=== PATIENT | female | born 1980 | race Caucasian/White ===

== ENCOUNTER 2017-05-29 07:33 | Inpatient (IN) | payer OTHER ==
[~2017-05-29] VITALS: Ht 160 cm; Wt 84.4 kg
[2017-05-29 07:54] VITALS: BP 117/65
[2017-05-29] MEDS ORDERED: PREN1TAB80 PO (07:56)
[2017-05-29] MEDS ORDERED: OXYTOCIN 30 UNITS/LACT RINGERS 500 ML IV ONE (08:26)
[2017-05-29] MEDS ORDERED: RINGERS SOLUTION,LACTATED 1,000 ML IV PRN (08:26)
[2017-05-29] MEDS ORDERED: CITRIC ACID/SODIUM CITRATE 30 ML SOLUTION UDCUP PO PRN (08:30)
[2017-05-29] MEDS ORDERED: METOCLOPRAMIDE HCL 5 MG/ML 2 ML VIAL IVP PRN (08:30)
[2017-05-29] MEDS ORDERED: LIDOCAINE HCL/PF 1% 30 ML VIAL INJ PRN (08:30)
[2017-05-29] MEDS ORDERED: AMPICILLIN SODIUM 2 GM/NS 100 ML IV ONE (08:30)
[2017-05-29] MEDS ORDERED: METHYLERGONOVINE MALEATE 0.2 MG/ML VIAL IM PRN (08:30)
[2017-05-29 08:57] LABS: BASOPHILS # (AUTO) 0.02 K/uL (0.00-0.20); BASOPHILS % (AUTO) 0.2 % (0.0-2.0); EOSINOPHILS % (AUTO) 1.01 % (1.0-6.0); HEMATOCRIT 37.1 % (36-46); HEMOGLOBIN 12.6 g/dL (12.0-16.0); LYMPHOCYTES % (AUTO) 19.8 % (22.0-44.0); MEAN CORPUSCULAR HEMOGLOBIN 32.2 pg (26.0-34.0); MEAN CORPUSCULAR VOLUME 95 fL (80-100); MONOCYTES # (AUTO) 0.6 K/uL (0.1-1.0); MONOCYTES % (AUTO) 6.1 % (2.0-9.0); NEUTROPHILS # (AUTO) 7.3 K/uL (1.8-7.7); NEUTROPHILS % (AUTO) 72.9 % (40.0-70.0); RED BLOOD CELL COUNT(AUTO) 3.92 MIL/uL (4.00-5.20); RED CELL DISTRIBUTION WIDTH 13.8 % (11.5-14.5)
[2017-05-29] MEDS: RINGERS SOLUTION,LACTATED 1,000 ML IV SCH ×3 (09:25→20:06)
[2017-05-29] MEDS: MISOPROSTOL 25 MCG TABLET VG SCH ×2 (09:38→12:30)
[2017-05-29] MEDS: AMPICILLIN SODIUM 1 GM/NS 50 ML IV SCH ×2 (13:42→17:52)
[2017-05-29] MEDS ORDERED: OXYTOCIN 30 UNITS/LACT RINGERS 500 ML IV PRN (13:51)
[2017-05-29] MEDS ORDERED: BUPIVACAINE HCL/PF 0.25% 10 ML VIAL ONE (15:46)
[2017-05-29] MEDS ORDERED: LIDOCAINE HCL/PF 2% 5 ML VIAL ONE (15:46)
[2017-05-29] MEDS ORDERED: FentaNYL/BUPIV 0.125%/NS/PF 200 ML ED ONE (15:46)
[2017-05-29] MEDS ORDERED: FentaNYL CITRATE-PF 100 MCG/2 ML VIAL IVP PRN (16:00)
[2017-05-29] MEDS ORDERED: FentaNYL/BUPIV 0.125%/NS/PF 200 ML ED PRN (16:29)
[2017-05-29] MEDS ORDERED: NALBUPHINE HCL 10 MG/ML VIAL IVP PRN ×2 (16:30)
[2017-05-29] MEDS ORDERED: PROMETHAZINE HCL 12.5 MG in SODIUM CHLORIDE 0.9% 50 ML IV PRN (16:30)
[2017-05-29] MEDS ORDERED: ONDANSETRON HCL 4 MG/2 ML VIAL IVP PRN (16:30)
[2017-05-29] MEDS ORDERED: DiphenhydrAMINE HCL 50 MG/ML VIAL IVP PRN (16:30)
[2017-05-29] MEDS ORDERED: OXYGEN THERAPY IH SCH (20:00)
[2017-05-29] MEDS ORDERED: RINGERS SOLUTION,LACTATED 1,000 ML IV ONE (23:48)
[2017-05-30] MEDS ORDERED: MEASLES/MUMPS/RUBELLA VACCINE, LIVE 0.5 ML/VIAL SQ ONE
[2017-05-30] MEDS ORDERED: OxyCODONE HCL/ACETAMINOPHEN 5-325 MG TABLET PO PRN ×2
[2017-05-30] MEDS ORDERED: GLYCERIN/WITCH HAZEL LEAF 40 PADS JAR TP PRN
[2017-05-30] MEDS ORDERED: BENZOCAINE 20%/MENTHOL 56 GM SPRAY CANISTER TP PRN
[2017-05-30] MEDS ORDERED: LANOLIN 7 GM OINTMENT TP PRN
[2017-05-30] MEDS: IBUPROFEN 600 MG TABLET PO PRN (20:22)
[2017-05-30] MEDS: MAGNESIUM HYDROXIDE SUSPENSION 30 ML UDCUP PO SCH (20:22)
[2017-05-31] MEDS: IBUPROFEN 600 MG TABLET PO PRN (05:12)
[2017-05-31] MEDS: MAGNESIUM HYDROXIDE SUSPENSION 30 ML UDCUP PO SCH (08:18)
[2017-05-31] MEDS ORDERED: IBUP-2070 PO (08:35)
[2017-05-31] MEDS ORDERED: DSS100 PO (08:37)
== END 2017-05-31 10:00 | disposition home or self-care (01) | DRG 775 ==
LOC: OBSVTOIN 07:33 → 4S 07:33
PROVIDERS: ADMIT Obstetrics & Gynecology; ATTEND Obstetrics & Gynecology
PROC: 10E0XZZ Delivery of Products of Conception, External Approach (ICD-10-PCS; principal; 2017-05-29)
PROC: 0UQMXZZ Repair Vulva, External Approach (ICD-10-PCS; 2017-05-29)
PROC: 0HQ9XZZ Repair Perineum Skin, External Approach (ICD-10-PCS; 2017-05-29)
PROC: 00HU33Z Insertion of Infusion Device into Spinal Canal, Percutaneous Approach (ICD-10-PCS; 2017-05-29)
DX: O42.92 Full-term premature rupture of membranes, unspecified as to length of time between rupture and onset of labor (principal); O63.9 Long labor, unspecified; O99.824 Streptococcus B carrier state complicating childbirth; O70.0 First degree perineal laceration during delivery; O71.82 Other specified trauma to perineum and vulva; O77.0 Labor and delivery complicated by meconium in amniotic fluid; Z37.0 Single live birth; Z3A.39 39 weeks gestation of pregnancy
CPT/HCPCS: 86850; 86900; 86901; J0290; J2590; J3010; J3490; J7120

== ENCOUNTER 2019-12-21 22:35 | Inpatient (IN) | payer OTHER ==
[~2019-12-21] VITALS: Ht 157.5 cm; Wt 85.7 kg
[~2019-12-21 22:35] MED LIST: DSS100 PO; IBUP-2070 PO; PREN1TAB80 PO
[2019-12-21] MEDS ORDERED: OXYTOCIN 30 UNITS/LACT RINGERS 500 ML IV PRN (23:22)
[2019-12-21] MEDS ORDERED: OXYTOCIN 30 UNITS/LACT RINGERS 500 ML IV ONE (23:22)
[2019-12-21] MEDS ORDERED: RINGERS SOLUTION,LACTATED 1,000 ML IV PRN (23:22)
[2019-12-21] MEDS ORDERED: FentaNYL CITRATE-PF 100 MCG/2 ML VIAL IVP PRN (23:30)
[2019-12-21] MEDS ORDERED: CITRIC ACID/SODIUM CITRATE 30 ML SOLUTION UDCUP PO PRN (23:30)
[2019-12-21] MEDS ORDERED: METOCLOPRAMIDE HCL 5 MG/ML 2 ML VIAL IVP PRN (23:30)
[2019-12-21] MEDS ORDERED: AMPICILLIN SODIUM 2 GM/NS 100 ML IV ONE (23:30)
[2019-12-21] MEDS: RINGERS SOLUTION,LACTATED 1,000 ML IV SCH (23:45)
[2019-12-22 00:12] LABS: HEMOGLOBIN 12.2 g/dL (12.0-16.0); RED BLOOD CELL COUNT(AUTO) 3.84 MIL/uL (4.00-5.20)
[2019-12-22 00:13] LABS: BASOPHILS % (AUTO) 0.3 % (0.0-2.0); EOSINOPHILS % (AUTO) 1.4 % (1.0-6.0); HEMATOCRIT 36.3 % (36-46); LYMPHOCYTES % (AUTO) 18.9 % (22.0-44.0); MEAN CORPUSCULAR HEMOGLOBIN 31.6 pg (26.0-34.0); MEAN CORPUSCULAR HGB CONC 33.5 G/dL (31.0-37.0); MEAN CORPUSCULAR VOLUME 95 fL (80-100); MONOCYTES # (AUTO) 0.8 K/uL (0.1-1.0); MONOCYTES % (AUTO) 7.8 % (2.0-9.0); NEUTROPHILS # (AUTO) 7.7 K/uL (1.8-7.7); NEUTROPHILS % (AUTO) 71.6 % (40.0-70.0); PLATELET COUNT (AUTO)-OB 197 K/uL (150-450); RED CELL DISTRIBUTION WIDTH 13.3 % (11.5-14.5)
[2019-12-22 00:39] VITALS: BP 114/69
[2019-12-22] MEDS: AMPICILLIN SODIUM 1 GM/NS 50 ML IV SCH ×3 (04:10→11:58)
[2019-12-22] MEDS ORDERED: ROPIVACAINE HCL/PF 0.2% 100 ML ED ONE (06:41)
[2019-12-22] MEDS ORDERED: ROPIVACAINE HCL/PF 0.2% 100 ML ED PRN (07:15)
[2019-12-22] MEDS ORDERED: DiphenhydrAMINE HCL 50 MG/ML VIAL IVP PRN (07:15)
[2019-12-22] MEDS ORDERED: ONDANSETRON HCL 4 MG/2 ML VIAL IVP PRN (07:15)
[2019-12-22] MEDS ORDERED: OXYGEN THERAPY IH SCH (08:00)
[2019-12-22] MEDS ORDERED: MINERAL OIL 30 ML UDCUP VG ONE (08:15)
[2019-12-22] MEDS: RINGERS SOLUTION,LACTATED 1,000 ML IV SCH (09:45)
[2019-12-22] MEDS ORDERED: METHYLERGONOVINE MALEATE 0.2 MG/ML VIAL IM PRN (10:30)
[2019-12-22] MEDS ORDERED: OXYTOCIN 30 UNITS/LACT RINGERS 500 ML IV ONE (13:27)
[2019-12-22] MEDS ORDERED: BENZOCAINE 20%/MENTHOL 56 GM SPRAY CANISTER TP PRN (13:30)
[2019-12-22] MEDS ORDERED: OxyCODONE HCL/ACETAMINOPHEN 5-325 MG TABLET PO PRN ×2 (13:30)
[2019-12-22] MEDS ORDERED: LANOLIN 7 GM OINTMENT TP PRN (13:30)
[2019-12-22] MEDS ORDERED: IBUPROFEN 800 MG TABLET PO PRN (13:30)
[2019-12-22] MEDS ORDERED: LIDOCAINE/PF 1% 30 ML VIAL INJ PRN (13:30)
[2019-12-22] MEDS ORDERED: MAGNESIUM HYDROXIDE SUSPENSION 30 ML UDCUP PO PRN (13:30)
[2019-12-22] MEDS ORDERED: GLYCERIN/WITCH HAZEL LEAF 40 PADS JAR TP PRN (13:30)
[2019-12-23 08:26] LABS: BASOPHILS % (AUTO) 0.5 % (0.0-2.0); EOSINOPHILS % (AUTO) 1.4 % (1.0-6.0); HEMATOCRIT 38.2 % (36-46); HEMOGLOBIN 12.5 g/dL (12.0-16.0); MEAN CORPUSCULAR HEMOGLOBIN 31.6 pg (26.0-34.0); MEAN CORPUSCULAR HGB CONC 32.8 G/dL (31.0-37.0); MEAN CORPUSCULAR VOLUME 96 fL (80-100); MONOCYTES % (AUTO) 7.4 % (2.0-9.0); NEUTROPHILS # (AUTO) 9.8 K/uL (1.8-7.7); NEUTROPHILS % (AUTO) 69.7 % (40.0-70.0); PLATELET COUNT (AUTO)-OB 205 K/uL (150-450); RED BLOOD CELL COUNT(AUTO) 3.98 MIL/uL (4.00-5.20); RED CELL DISTRIBUTION WIDTH 13.3 % (11.5-14.5)
[2019-12-23] MEDS ORDERED: IBUP-2071 PO (10:32)
== END 2019-12-23 14:15 | disposition home or self-care (01) | DRG 807 ==
LOC: 4S 22:35 → OBSVTOIN 22:35
PROVIDERS: ADMIT Obstetrics & Gynecology; ATTEND Obstetrics & Gynecology
PROC: 10E0XZZ Delivery of Products of Conception, External Approach (ICD-10-PCS; principal; 2019-12-22)
PROC: 0HQ9XZZ Repair Perineum Skin, External Approach (ICD-10-PCS; 2019-12-22)
PROC: 3E0R3BZ Introduction of Anesthetic Agent into Spinal Canal, Percutaneous Approach (ICD-10-PCS; 2019-12-22)
PROC: 00HU33Z Insertion of Infusion Device into Spinal Canal, Percutaneous Approach (ICD-10-PCS; 2019-12-22)
DX: O99.824 Streptococcus B carrier state complicating childbirth (principal); O70.0 First degree perineal laceration during delivery; Z37.0 Single live birth; Z3A.37 37 weeks gestation of pregnancy
CPT/HCPCS: 86850; 86900; 86901; 87635; J0290; J2590; J2795; J7120